=== PATIENT | male | born 1995 | race Caucasian/White ===

== ENCOUNTER 2025-02-19 00:57 | Emergency (ER) | payer OTHER ==
[~2025-02-19] VITALS: Ht 177.8 cm; Wt 72.6 kg
[2025-02-19] MEDS: TDAP [DIPH/PERTUSSIS/TET] 0.5 ML VIAL IM ONE (01:02)
[2025-02-19] MEDS ORDERED: TDAP [DIPH/PERTUSSIS/TET] 0.5 ML VIAL IM ONE (01:57)
[2025-02-19] MEDS ORDERED: CEPH-570 PO (04:41)
[2025-02-19] MEDS ORDERED: CEPHALEXIN MONOHYDRATE 500 MG CAPSULE PO ONE (04:46)
[2025-02-19] MEDS: CEPHALEXIN MONOHYDRATE 500 MG CAPSULE PO ONE (04:50)
[2025-02-19 04:52] VITALS: BP 125/65; TEMP 98; O2SAT 100
== END 2025-02-19 04:53 | disposition home or self-care (01) ==
LOC: ER 01:01
DX: S56.222A Laceration of other flexor muscle, fascia and tendon at forearm level, left arm, initial encounter (principal); S00.81XA Abrasion of other part of head, initial encounter; R51.9 Headache, unspecified; V43.52XA Car driver injured in collision with other type car in traffic accident, initial encounter; Y93.89 Activity, other specified; Y92.410 Unspecified street and highway as the place of occurrence of the external cause; Y99.8 Other external cause status
CPT/HCPCS: 70450-TC; 72125-TC; 73090-TC; 73130-TC; 90715